=== PATIENT | female | born 1960 | race Caucasian/White ===

== ENCOUNTER 2024-06-17 09:00 | Inpatient (IN) | payer OTHER ==
[~2024-06-17] VITALS: Ht 160 cm; Wt 68.0 kg
[~2024-06-17 09:00] MED LIST: TYLENOL EXTRA500 MG PO
[2024-06-17] MEDS ORDERED: TOPROL XL50 M1 PO (10:05)
[2024-06-17] MEDS ORDERED: ROSUVASTATIN CA20 MG PO (10:05)
[2024-06-17 10:21] LABS: HEMOGLOBIN 13.5 g/dL (12.0-15.00); MEAN CELL VOLUME 89.1 fL (80.00-100.00); MEAN CORPUSCULAR HGB CONC 33.7 g/dl (32.0-36.0); PLATELET COUNT 242 K/uL (150-450); RED BLOOD COUNT 4.49 M/uL (4.00-6.00); RED CELL DISTRIBUTION WIDTH 14.1 % (11.5-14.5)
[2024-06-17 10:24] LABS: URINE APPEARANCE Clear; URINE BILIRRUBIN Negative (NEGATIVE); URINE BLOOD Large; URINE COLOR Yellow; URINE GLUCOSE Negative (NEGATIVE); URINE KETONE Negative (NEGATIVE); URINE LEUKOCYTE Negative; URINE NITRATE Negative; URINE PROTEIN Negative (NEGATIVE); URINE UROBILINOGEN 0.2 E.U./dl
[2024-06-17 10:28] LABS: URINE EPITHELIAL CELLS 3.6 uL (0.0-38.8); URINE RBC 58.7 uL (0.0-20.8); URINE WBC 3.6 uL (0.0-23.2)
[2024-06-17 10:30] LABS: URINE BACTERIA 1.2 uL (0.0-1933)
[2024-06-17 10:50] LABS: INR 1.01; PARTIAL THROMBOPLASTIN TIME 27.1 SECONDS (22.0-34.0)
[2024-06-17 12:09] LABS: BILIRUBIN TOTAL 0.51 mg/dL (0.3-1.2); CALCIUM 9.3 mg/dL (8.5-10.1); CREATININE SERUM 0.68 mg/dL (0.55-1.02); GFR 86.84; GLOBULINA 2.7 G/DL (2.4-3.5); POTASSIUM 4.29 mEq/L (3.5-5.1); TOTAL PROTEIN 6.7 gm/dL (6.4-8.2)
[2024-06-25] MEDS ORDERED: METRONIDAZOLE/SODIUM CHLORIDE 500 MG/100 ML PIGGYBACK IV ONE (09:06)
[2024-06-25] MEDS ORDERED: CEFTRIAXONE SODIUM 2,000 MG VIAL ONE (09:06)
[2024-06-25] MEDS ORDERED: DEXTROSE 50 % IN WATER 0.5 G/ML DISP.SYRIN IV PRN (10:15)
[2024-06-25] MEDS ORDERED: MORPHINE SULFATE 4 MG/ML CARTRIDGE IV PRN (10:15)
[2024-06-25] MEDS ORDERED: OxyCODONE HCL 5 MG TABLET (ROXICODONE) PO PRN (10:15)
[2024-06-25] MEDS ORDERED: 0.9 % SODIUM CHLORIDE 1,000 ML IV SCH (10:15)
[2024-06-25] MEDS ORDERED: ONDANSETRON HCL 2 MG/ML VIAL IV PRN (10:15)
[2024-06-25] MEDS ORDERED: HYOSCYAMINE SULFATE 0.125 MG TAB.SUBL SL SCH (13:00)
[2024-06-25] MEDS ORDERED: MORPHINE SULFATE 2 MG/ML CARTRIDGE IV ONE ×2 (13:00→14:00)
[2024-06-25 13:13] LABS: HEMOGLOBIN 13.1 g/dL (12.0-15.00); MEAN CELL VOLUME 89.2 fL (80.00-100.00); MEAN CORPUSCULAR HEMOGLOBIN 29.1 pg (27.00-32.0); MEAN CORPUSCULAR HGB CONC 32.7 g/dl (32.0-36.0); PLATELET COUNT 279 K/uL (150-450); RED BLOOD COUNT 4.48 M/uL (4.00-6.00); RED CELL DISTRIBUTION WIDTH 13.7 % (11.5-14.5)
[2024-06-25 13:59] LABS: ALBUMIN 3.6 gm/dL (3.4-5.0); CALCIUM 8.4 mg/dL (8.5-10.1); CREATININE SERUM 0.78 mg/dL (0.55-1.02); GFR 74.12; MAGNESIUM 2.1 mg/dL (1.8-2.4); PHOSPHOROUS 3.8 mg/dL (2.5-4.9); POTASSIUM 4.01 mEq/L (3.5-5.1)
[2024-06-25] MEDS ORDERED: ACETAMINOPHEN 500 MG GEL..CAP PO SCH (14:00)
[2024-06-25] MEDS ORDERED: ENALAPRILAT DIHYDRATE 1.25 MG/ML VIAL IV PRN (14:00)
[2024-06-25 14:49] LABS: ABG PH 7.374 (7.35-7.45); ABG PO2 147.9 mmHg (80-100); ABG pCO2 42.4 mmHg (35-45); BASE EXCESS -1.1 mmol/l; BICARBONATE 24.2 mmol/l (23-25); SaO2 99.2 %; Tco2 25.5 mmol/l
[2024-06-25 14:50] LABS: allen test SATISFACTORY; o2 48 %; puncture site RADIAL RIGHT
[2024-06-25] MEDS ORDERED: GABAPENTIN 300 MG CAPSULE PO ONE (16:27)
[2024-06-25] MEDS ORDERED: HYOSCYAMINE SULFATE 0.125 MG TAB.SUBL ONE (16:27)
[2024-06-25] MEDS ORDERED: MORPHINE SULFATE 4 MG/ML VIAL IV ONE (16:30)
[2024-06-25] MEDS ORDERED: ONDANSETRON HCL 2 MG/ML VIAL ONE (16:33)
[2024-06-25] MEDS ORDERED: GABAPENTIN 300 MG CAPSULE PO SCH (17:00)
[2024-06-25] MEDS ORDERED: METRONIDAZOLE/SODIUM CHLORIDE 500 MG/100 ML PIGGYBACK IV SCH (17:00)
[2024-06-25] MEDS ORDERED: POLYETHYLENE GLYCOL 3350 17 GM BLIST.PACK PO SCH (17:00)
[2024-06-25] MEDS ORDERED: CELECOXIB 200 MG CAPSULE PO SCH (21:00)
[2024-06-25] MEDS ORDERED: FAMOTIDINE/PF 20 MG/2 ML VIAL IV PUSH SCH (21:00)
[2024-06-25] MEDS ORDERED: ACETAMINOPHEN 500 MG GEL..CAP PO ONE (21:05)
[2024-06-25] MEDS ORDERED: FAMOTIDINE/PF 20 MG/2 ML VIAL ONE (21:05)
[2024-06-25 22:17] VITALS: BP 146/76; O2SAT 98
[2024-06-26 01:00] VITALS: BP 145/79; O2SAT 99
[2024-06-26 07:58] LABS: HEMATOCRIT 41.1 % (36.0-45.00); HEMOGLOBIN 13.5 g/dL (12.0-15.00); MEAN CELL VOLUME 89.3 fL (80.00-100.00); MEAN CORPUSCULAR HEMOGLOBIN 29.3 pg (27.00-32.0); MEAN CORPUSCULAR HGB CONC 32.9 g/dl (32.0-36.0); PLATELET COUNT 292 K/uL (150-450); RED CELL DISTRIBUTION WIDTH 13.5 % (11.5-14.5)
[2024-06-26 08:23] LABS: ALBUMIN 3.5 gm/dL (3.4-5.0); CALCIUM 8.2 mg/dL (8.5-10.1); CREATININE SERUM 0.62 mg/dL (0.55-1.02); GFR 96.6; PHOSPHOROUS 3.3 mg/dL (2.5-4.9); POTASSIUM 4.05 mEq/L (3.5-5.1)
[2024-06-26] MEDS ORDERED: METOPROLOL SUCCINATE 50 MG TAB.SR.24H PO SCH (09:00)
[2024-06-26 12:42] VITALS: BP 109/48; O2SAT 95
[2024-06-26] MEDS ORDERED: ROSUVASTATIN 20 MG PO SCH (17:00)
[2024-06-26] MEDS ORDERED: ENOXAPARIN SODIUM 40 MG/0.4 ML SYRINGE SUBCUTANEO SCH (17:00)
[2024-06-26 18:22] VITALS: BP 105/57; O2SAT 96
[2024-06-26 19:12] VITALS: O2SAT 96
[2024-06-26 21:57] VITALS: O2SAT 96
[2024-06-27] VITALS (10 sets, daily range): BP systolic 104–117; BP diastolic 66–72; O2SAT 90–98
[2024-06-27 08:03] LABS: HEMATOCRIT 39.1 % (36.0-45.00); HEMOGLOBIN 12.9 g/dL (12.0-15.00); MEAN CELL VOLUME 89.3 fL (80.00-100.00); MEAN CORPUSCULAR HEMOGLOBIN 29.5 pg (27.00-32.0); PLATELET COUNT 257 K/uL (150-450); RED BLOOD COUNT 4.38 M/uL (4.00-6.00); RED CELL DISTRIBUTION WIDTH 13.7 % (11.5-14.5)
[2024-06-27 08:49] LABS: CALCIUM 8.2 mg/dL (8.5-10.1); CREATININE SERUM 0.58 mg/dL (0.55-1.02); GFR 104.33; MAGNESIUM 2.1 mg/dL (1.8-2.4); POTASSIUM 3.82 mEq/L (3.5-5.1)
[2024-06-27] MEDS ORDERED: ENOXAPARIN SODIUM 40 MG/0.4 ML SYRINGE SUBCUTANEO SCH (09:00)
[2024-06-27 09:04] LABS: PHOSPHOROUS 1.9 mg/dL (2.5-4.9)
[2024-06-27] MEDS ORDERED: POTASSIUM PHOS,M-BASIC-D-BASIC 15 MM in 0.9 % SODIUM CHLORIDE 250 ML IV ONE (11:00)
[2024-06-28 00:01] VITALS: O2SAT 97
[2024-06-28 05:04] VITALS: O2SAT 98
[2024-06-28 08:37] VITALS: BP 119/75; O2SAT 97
[2024-06-28 09:34] VITALS: O2SAT 92
[2024-06-28] MEDS ORDERED: NEURONTIN300 MG PO (12:24)
[2024-06-28] MEDS ORDERED: A/F PAIN RELIE500 MG PO (12:24)
[2024-06-28] MEDS ORDERED: INTESTINEX680 M1 PO (12:24)
[2024-06-28 12:44] VITALS: O2SAT 95
== END 2024-06-28 13:15 | disposition home or self-care (01) | DRG 330 ==
LOC: O/R 06-25 05:15 → SURH 06-25 07:00 → SURG 06-25 19:22
PROVIDERS: Internal Medicine Geriatric Medicine; ADMIT Surgery; ATTEND Surgery
PROC: 0DBP4ZZ Excision of Rectum, Percutaneous Endoscopic Approach (ICD-10-PCS; 2024-06-25)
PROC: 0DJ08ZZ Inspection of Upper Intestinal Tract, Via Natural or Artificial Opening Endoscopic (ICD-10-PCS; 2024-06-25)
PROC: 0DTN4ZZ Resection of Sigmoid Colon, Percutaneous Endoscopic Approach (ICD-10-PCS; principal; 2024-06-25 07:00)
DX: K57.30 Diverticulosis of large intestine without perforation or abscess without bleeding (principal); K63.2 Fistula of intestine; R19.4 Change in bowel habit

== ENCOUNTER 2025-01-25 15:36 | Emergency (ER) | payer OTHER ==
[~2025-01-25] VITALS: Ht 160 cm; Wt 68.0 kg
[~2025-01-25 15:36] MED LIST changes: +A/F PAIN RELIE500 MG PO; +INTESTINEX680 M1 PO; +NEURONTIN300 MG PO; +ROSUVASTATIN CA20 MG PO; +TOPROL XL50 M1 PO
== END 2025-01-25 18:22 | disposition home or self-care (01) ==
LOC: ER 15:36
DX: B30.3 Acute epidemic hemorrhagic conjunctivitis (enteroviral) (principal); I10 Essential (primary) hypertension; Z88.6 Allergy status to analgesic agent